=== PATIENT | female | born 1950 | race Caucasian/White ===

== ENCOUNTER 2021-03-19 13:46 | Inpatient (IN) | payer MEDICARE ==
[~2021-03-19] VITALS: Ht 175.3 cm; Wt 95.8 kg
[2021-04-07] VITALS (10 sets, daily range): BP systolic 108–146; BP diastolic 57–85; PULSE 65–89; TEMP 97.3–98.1
[2021-04-07] MEDS ORDERED: CRANBERRY250 MG PO (06:12)
[2021-04-07] MEDS ORDERED: PRESERVISION1 SGL PO (06:12)
[2021-04-07] MEDS ORDERED: VTAMINC250TA PO (06:12)
[2021-04-07 06:35] LABS: BASO % 0.6 % (0.0-2.0); EOS # 0.2 (0.0-0.7); EOS % 2.7 % (0-4.0); GRAN # 4.3 (1.4-6.5); GRAN % 68.6 % (42.2-75.2); HEMATOCRIT 39.1 % (37.0-47.0); HEMOGLOBIN 12.3 g/dl (12.5-16.0); LYMPH # 1.2 (1.2-3.4); LYMPH % 18.8 % (20.0-51.0); MEAN CELL VOLUME 85 fl (80.0-100.0); MEAN CORPUSCULAR HEMOGLOBIN 27 pg (27.0-31.0); MEAN CORPUSCULAR HGB CONC 32 g/dl (33.0-37.0); MEAN PLATELET VOLUME 9.3 fl (7.4-10.4); MONO # 0.6 (0.1-0.6); PLATELET COUNT 393 K/mm3 (130-400); RED BLOOD COUNT 4.61 M/mm3 (4.10-5.30); REDCELL DISTRIBUTION WIDTH-CV 16.3 % (11.5-14.5)
[2021-04-07 06:59] LABS: ERYTHROCYTE SEDIMENTATION RATE 35 mm/hr (0-30)
--- NOTE | 2021-04-07 11:55 | NUR ---
PT TO ROOM 332 PER BED WITH REPORT FROM [facility] @7170. PT IS A/O X4, LUNGS CTA, BOWEL SOUNDS PRESENT. IV TO RH FLUIDS PER GRAVITY. LEFT KNEE WITH OCCLUSIVE LELIA WRAP OVER INCISION SITE. IROM BRACE LOCKED AT ZERO. FAMILY AT BEDSIDE.
--- NOTE | 2021-04-07 14:08 | NUR ---
PT UP TO BR WITH SBAX1. VOIDED AND RETURNED TO BED. AMBULATES WITH STEADY GAIT,
--- NOTE | 2021-04-07 23:56 | NUR ---
Patient assessed around 2004. Alert and oriented, and able to make needs known. Reported level 5 pain to left knee. Given PRN Roxicodone for pain as requested at that time. Called around 0, and given another PRN Roxicodone for level 5 pain as requested (took one pill each time). Peripheral IV to right forearm. Denies SOB and dyspnea. LS CTA. Respirations even and unlabored. HRR. Capillary refill less than 3 seconds. Non-tenting skin turgor. BS hypoactive x 4. Abdomen soft and non-tender. Denies passing gas. Dressing/Dell/brace to left knee. Voices no questions, needs, or concerns at this time. Resting in bed with call light within reach.
[2021-04-08] VITALS (7 sets, daily range): BP systolic 100–139; BP diastolic 6–68; PULSE 58–85; TEMP 97–98.7
--- NOTE | 2021-04-08 04:59 | NUR ---
Patient has been resting in bed with call light within reach. Has voiced no questions, needs, or concerns this shift. Denies having pain and discomfort at this time. Encouraged to call if she starts to have pain to stay on top of pain, and voiced understanding. Continues on IV fluids and antibiotics per orders. Has called to go to the bathroom. One assist with use of walker.
--- NOTE | 2021-04-08 05:19 | NUR ---
Patient given PRN [place] as requested at this time for left knee discomfort.
[2021-04-08 06:46] LABS: HEMATOCRIT 28.5 % (37.0-47.0); HEMOGLOBIN 8.9 g/dl (12.5-16.0)
--- NOTE | 2021-04-08 09:53 | NUR ---
PT UP TO RECLINER WITH THERAPY. PAIN WELL CONTROLLED WITH PO MEDS AT THIS TIME. IROM BRACE UNLOCKED 0-60. PT TOLERATING THERAPY WELL. PICC LINE PLACED BY IV SERVICES THIS AM.
--- NOTE | 2021-04-08 10:41 | NUR ---
First visit from the career and technology education teacher. prayed with patient. No other needs right now.
--- NOTE | 2021-04-08 16:16 | NUR ---
Directional Survey Drafter met with the patient to complete intake. The patient lives independently in [place] with her , Johnny. The patient has a walker, showers stool, and commode. The patient's PCP is Aliza JAMA. The patient receives medications from [facility]. The patient does not have advanced directives in the EMR but states they are complete. The patient plans to return home at discharge. The patient will likely be needing IV antibiotics at discharge. The patient's daughter, Joelle Brooks #[phone] is an RN and will want to administer the IV antibiotics at home. THAIS presented Medicare.[employer]'s list of home health agencies and the only one on the list for [place] [facility]. THAIS faxed referral. The patient discussed using [facility] for antibiotics. THAIS faxed referral. Both pending insurance authorization. THAIS contacted Joelle and she confirms she will be administering the IV antibiotics. THAIS contacted VINICIUS Gandhi with Dr. Vieira regarding care coordination post discharge to review all the discharge order and script requirements. Arnulfo states that Dr. Willson may likely want to wait until cultures result before the patient is ready for discharge. Arnulfo to consult with Dr. Vieira regarding discharge as well. THAIS collaborated the above information to the patient's nurse. *Discharge disposition at this time: Home with IV antibiotics administered at home by daughter Joelle RN*
--- NOTE | 2021-04-08 22:53 | NUR ---
Patient assessed around 2029. Alert and oriented, and able to make needs known. Denied having pain at time of assessment, but called around 2200, and requested pain medication for level 5 pain to left knee. Given PRN [place] as requested for pain at that time. PICC to LITA. Denies SOB and dyspnea. LS CTA. Respirations even and unlabored. HRR. Capillary refill less than 3 seconds. Non-tenting skin turgor. BSAx4. Abdomen soft and non-tender. No edema. Aquacell to left knee CDI. Brace to left knee. Voices no questions, needs, or concerns at this time. Resting in bed with call light within reach.
[2021-04-09 03:42] VITALS: BP 134/55; PULSE 78; TEMP 98.3
[2021-04-09 04:50] VITALS: BP 101/59; PULSE 68; TEMP 97.9
--- NOTE | 2021-04-09 05:41 | NUR ---
Patient received PRN pain medications as requested during the night. Voices no questions, needs, or concerns at this time. Resting in bed with call light within reach.
[2021-04-09 06:03] LABS: HEMATOCRIT 27.9 % (37.0-47.0); HEMOGLOBIN 8.7 g/dl (12.5-16.0)
[2021-04-09 07:43] VITALS: BP 98/77; PULSE 79; TEMP 97.7
--- NOTE | 2021-04-09 07:47 | NUR ---
Pt doing well this morning. She is a stand by assist to the restroom. Minimal pain complaints even with ambulation. Knee brace is on, pt aware that it is to be on at all times with activity. Pt breakfast has arrived.
--- NOTE | 2021-04-09 08:27 | NUR ---
Pt did not order the prunes or want the hot water. She did ask for prune juice at this time
--- NOTE | 2021-04-09 10:28 | NUR ---
Pt continues to do great with minimal pain complaints. She has worked with therapy and has taken a shower per OT. Pt is planning on going home today once outpt antibiotics get set up
[2021-04-09 11:08] VITALS: BP 106/65; PULSE 81; TEMP 98.3
[2021-04-09] MEDS ORDERED: NORCO 325 MG-7.1 TAB PO (13:01)
[2021-04-09] MEDS ORDERED: ROXICODONE 55 MG/TAB PO (13:02)
[2021-04-09] MEDS ORDERED: ASPIRIN 32325 MG/TAB PO (13:03)
--- NOTE | 2021-04-09 14:03 | NUR ---
The patient to discharge home today, 04/09 with [facility] The patient's daughter Joelle will provide transport. The patient will be needing IV antibiotics (Vanc 1.5 grams Q12) for 6 weeks. The patient's daughter Joelle to administer the antibiotic. Malaika with [facility] reports the patient's copay will be $46.37 a week. Malaika visited the patient and her daughter to provide patient education. THAIS faxed discharge orders and script to Malaika. THAIS faxed Etelvina with [facility] regarding discharge and the first Vanco trough needs to to be drawn prior to the 4th dose which is on 04/10 PM. Etelvina understood. THAIS faxed discharge orders to Etelvina. THAIS collaborated the above information with the byron's nurse. There are no additional needs.
[2021-04-09 14:50] LABS: CALCIUM 8.4 mg/dL (8.4-10.2); CREATININE, serum 0.58 (0.52-1.25)
--- NOTE | 2021-04-09 14:53 | NUR ---
Reviewed discharge instructions with pt to include follow up appointment prescriptions and lab work. Educated on the use of her brace. Informed her that I did not get the appointment made with [facility], as pt needed to leave by certain time and had not received a call back. Pt reported that she would call them to set up the appointment. All paperwork was faxed to [facility]. Pt escorted out at this time
== END 2021-04-09 14:55 | disposition home health service (06) | DRG 487 ==
LOC: OR 04-07 05:34 → SURG 04-07 07:30
PROVIDERS: ADMIT Orthopaedic Surgery
PROC: 0SRD0EZ Replacement of Left Knee Joint with Articulating Spacer, Open Approach (ICD-10-PCS; 2021-04-07)
PROC: 0SPD0EZ Removal of Articulating Spacer from Left Knee Joint, Open Approach (ICD-10-PCS; principal; 2021-04-07 07:30)
PROC: 02HV33Z Insertion of Infusion Device into Superior Vena Cava, Percutaneous Approach (ICD-10-PCS; 2021-04-08)
DX: T84.54XA Infection and inflammatory reaction due to internal left knee prosthesis, initial encounter (principal); Y83.9 Surgical procedure, unspecified as the cause of abnormal reaction of the patient, or of later complication, without mention of misadventure at the time of the procedure; Z96.652 Presence of left artificial knee joint
CPT/HCPCS: A9284; C1713; C1751; C1776; J0690; J2250; J2704; J3010; J3260; J3370; J7042; J7050; J7120; L1832

== ENCOUNTER 2021-06-20 09:30 | Inpatient (IN) | payer MEDICARE ==
[~2021-06-20] VITALS: Ht 175.4 cm; Wt 95.5 kg
[~2021-06-20 09:30] MED LIST: ASPIRIN 32325 MG/TAB PO; CRANBERRY250 MG PO; NORCO 325 MG-7.1 TAB PO; PRESERVISION1 SGL PO; ROXICODONE 55 MG/TAB PO; VTAMINC250TA PO
[2021-07-10] VITALS (9 sets, daily range): BP systolic 101–138; BP diastolic 55–94; PULSE 73–89; TEMP 97.3–98.5
--- NOTE | 2021-07-10 08:00 | NUR ---
Patient negative test result from 06/23 on chart. Patient reports she has been self isolating and has no possible exposure to any infection or suspected infection.
--- NOTE | 2021-07-10 09:00 | NUR ---
Patient admitted to bay 5 via wheelchair, unable to bear weight on left leg. Alert and oriented. Confirmed procedure and consent signed. Vitals obtained. Heart tones regular. Lungs CTA. Bowel sounds +x4 quadrants. 18G IV started in right hand, infusing without complication. Chlorhexidine scrub done. SUSANNA hose applied to RLE. brought to bedside. Patient up to bathroom, able to void without difficulty. Bedrails up x2, non slip socks on, call light in reach. Instructed to use call light before getting up.
[2021-07-10] MEDS ORDERED: ONE-A-DAY ESSE1 EACH PO (09:37)
[2021-07-10] MEDS ORDERED: FOLIC ACID0.4 MG PO (09:38)
[2021-07-10] MEDS ORDERED: VITAMIN (09:39)
--- NOTE | 2021-07-10 20:30 | NUR ---
PATIENT IS CALM IN THE ROOM.DENIES PAIN.SAFETY MEASURES IN PLACE.NO OTHER NEEDS AT THIS TIME.
[2021-07-11 03:00] VITALS: BP 135/58; PULSE 77; TEMP 97.7
--- NOTE | 2021-07-11 05:55 | NUR ---
Patient had a jori.Patient is ambulating with a walker ang GB.Tolerating well.Denies pain.Safety measures in place.No other needs at this time.
[2021-07-11] MEDS ORDERED: XARELTO10 MG PO (07:05)
[2021-07-11] MEDS ORDERED: ROXICODONE 55 MG/TAB PO (07:06)
--- NOTE | 2021-07-11 08:00 | NUR ---
PATIENT IS A&O. VSS. DENIES PAIN OR NAUSEA. STUDENT NURSE WORKING WITH PATIENT TODAY, SEE CHARTING. STUDENT NURSE TO CHANGE POST OP LTK DRESSING TO AQUACEL. TEDS & SCD'S TO BLE. HEAD TO TOE ASSESSMENT WNL. PT/OT CONSULTED. PATIENT HOPING TO DISCHARGE HOME LATER TONIGHT IF DOING WELL. NO OTHER NEEDS. CALL LIGHT IN REACH.
[2021-07-11 08:03] VITALS: BP 133/67; PULSE 82; TEMP 97.6
--- NOTE | 2021-07-11 08:21 | NUR ---
Patient incision on left knee is intact, closed eith richa. Patient wound edges are approximated. Patient incision is clean, dry, and intact. No redness, drainage, or inflammation. Aquacell dressing applied.
[2021-07-11 12:16] VITALS: BP 98/52; PULSE 79
[2021-07-11] MEDS ORDERED: NORCO 325 MG-7.1 TAB PO (12:22)
[2021-07-11] MEDS ORDERED: DOXYCYCLINE HY100 MG PO (12:23)
--- NOTE | 2021-07-11 13:59 | NUR ---
SW met with patient and her , Ed, in patient's room to discuss discharge needs. Patient and reside in a house in [place]. Patient has been mostly independent with ADL's until recently, as she has had to rely on a walker d/t knee pain. She has no other DME's and she has no 02 needs. Patient's volunteered that patient has a DPOA in place and it is Johnny Mayo. PCP is located in [place], Aliza Rodrigues ([facility]). Patient has no difficulty obtaining her medications. *Patient will discharge home with her .
--- NOTE | 2021-07-11 16:25 | NUR ---
PATIENT DISCHARGING HOME VIA WC TO PERSONAL VEHICLE WITH . GAVE DISCHARGE INSTRUCTIONS, PATIENT ALREADY HAS SCRIPTS SHE JUST NEEDS TO PROOF PASSER THE ANTIBIOTIC, AND F/U APT DISCUSSED. ANSWERED QUESTIONS/CONCERNS. STUDENT NURSE DC'D IV SITE. PATIENT IS DRESSED, PACKED AND ESCORTED OUT.
== END 2021-07-11 16:32 | disposition home or self-care (01) | DRG 468 ==
LOC: SURG 06-26 08:30 → EDSTATUS 06-26 08:30 → SDCO 06-26 08:30 → INPTSU 07-10 07:46 → SURG 07-10 07:46 → SDCO 07-10 08:30 → EDSTATUS 07-10 08:30 → SURG 07-10 16:44
PROVIDERS: ADMIT Orthopaedic Surgery
PROC: 0SPD08Z Removal of Spacer from Left Knee Joint, Open Approach (ICD-10-PCS; 2021-07-10)
PROC: 0SRD0J9 Replacement of Left Knee Joint with Synthetic Substitute, Cemented, Open Approach (ICD-10-PCS; principal; 2021-07-10 11:45)
PROC: 0SPD0JZ Removal of Synthetic Substitute from Left Knee Joint, Open Approach (ICD-10-PCS; 2021-07-10 11:45)
DX: Z47.32 Aftercare following explantation of hip joint prosthesis (principal); Z85.828 Personal history of other malignant neoplasm of skin; Z79.891 Long term (current) use of opiate analgesic; Z88.0 Allergy status to penicillin
CPT/HCPCS: C1713; C1776; J0690; J1100; J1885; J2250; J2405; J2704; J2795; J3010; J3370; J7042; J7120